=== PATIENT | female | born 1990 | race Two or more races ===

== ENCOUNTER 2023-11-13 12:29 | Emergency (ER) | payer SELFPAY ==
[~2023-11-13] VITALS: Ht 162.6 cm; Wt 68.0 kg
[2023-11-13 12:32] VITALS: BP 110/78; PULSE 74; RESP 16; TEMP 98; O2SAT 97
== END 2023-11-13 17:15 | disposition home or self-care (01) ==
LOC: ER 14:35
DX: F91.8 Other conduct disorders (principal); Z98.890 Other specified postprocedural states
CPT/HCPCS: 99283